=== PATIENT | male | born 1980 | race African-American/Black ===

== ENCOUNTER 2019-12-21 15:52 | Emergency (ER) | payer OTHER ==
[2019-12-21] MEDS ORDERED: HYDRALAZINE HC100 MG PO (15:57)
[2019-12-21] MEDS ORDERED: FUROSEMIDE 40 M40 MG PO (15:57)
[2019-12-21] MEDS ORDERED: CARVEDILOL25 MG PO (15:57)
[2019-12-21] MEDS ORDERED: NORVASC 2.5 MG2.5 M1 PO (15:58)
[2019-12-21] MEDS ORDERED: COUMADIN 2.5MG2.5 M1 PO (15:58)
== END 2019-12-21 15:55 ==
LOC: ER 15:52
DX: I46.9 Cardiac arrest, cause unspecified (principal)